=== PATIENT | female | born 1950 | race Caucasian/White ===

== ENCOUNTER 2017-03-27 10:22 | Emergency (ER) | payer OTHER ==
[2017-03-27 10:29] VITALS: BP 101/68; BMI 22.4
--- NOTE | 2017-03-27 10:53 | DR.GENAD ---
HPI - PCP Primary Care Physician: devorah melton - HPI Comment HPI Comment: INCREASING LOWER AND UPPER BACK PAIN. HISTORY OF BACK INJURY PREVIOUSLY. - Complaint/Symptoms Chief Complaint Doctors Comments: INJURY UPPER AND LOWER BACK 5 DAYS AGO. Chief Complaint:: pt hurt back in the garden tuesday afternoon and it has got worse since then - Nurses notes reviewed Nurses Notes Review: Yes - Source History Provided: Patient - Mode of Arrival Mode of Arrival: Ambulatory - Timing Onset of Chief Complaint: 03/22/17 Came on: Suddenly - Duration Duration: Constant Duration: Days - Severity Severity: Moderate PMH - PMH Past Medical History: Yes Past Medical History: Anxiety, Dyslipidemia, Migraines, Hypertension Past Surgical History: Yes Surgical History: Angioplasty/Stents, Cholecystectomy, Hysterectomy, Ortho Surgery - Family History History of Family Medical Conditions: Yes Family Medical History: Cancer, Heart Failure, Hypertension - Social History Does patient currently use any type of tobacco product: No Have you used tobacco products in the last 12 months: No Type of Tobacco Use: None Does any household member use tobacco: No Alcohol Use: None Do you use any recreational Drugs:: No Lives With: Spouse Lives Where: Home - infectious screening In the last 2 months have you had wt loss of >10#?: NO Have you had fever, night sweats or hemotysis?: No Have you traveled outside the country in the last 6 months?: No Isolation: Standard ROS - Review of Systems Constitutional: No Symptoms Reported. negative: Chills, Fever Eyes: No Symptoms Reported. negative: Eye Pain, Discharge ENTM: No Symptoms Reported. negative: Ear Pain, Nose Discharge, Nose Congestion , Throat Pain Respiratoy: No Symptoms Reported. negative: Productive Cough, Non-Productive Cough, Short of Breath, Wheezing, Hemoptysis Cardiovascular: Chest Pain (BACK OF CHEST HURTING.) Gastrointestinal/Abdominal: No Symptoms Reported. negative: Abdominal Pain, Constipation, Nausea Genitourinary: No Symptoms Reported PE - Vital Signs Vitals: Temperature 97.4 F Pulse Rate 69 Respiratory Rate 18 Blood Pressure [Left Arm] 125/82 Blood Pressure 101/68 O2 Sat by Pulse Oximetry 99 - Discharge Plan Condition: Stable Prescriptions: Cyclobenzaprine HCl [FLEXERIL 10 MG *] 10 mg PO TID #20 tab Oxycodone/Acet 5 mg/325 mg [PERCOCET 5/325 MG *] 1 tab PO Q6H PRN #15 tab PRN Reason: Severe Pain - Follow ups/Referrals Follow ups/Referrals: FRANCIS MELTON [Primary Care Provider] - 3 days - Instructions Instructions: Thoracic Strain, [id number], Lumbosacral Strain Additional Instructions: RETURN TO ED IF WORSE.
[2017-03-27] MEDS ORDERED: NORFLEX INJ IM ONE (10:55)
[2017-03-27] MEDS ORDERED: TORADOL 60 MG VIAL IM ONE (10:55)
[2017-03-27] MEDS ORDERED: NORFLEX INJ ONE (10:57)
[2017-03-27] MEDS ORDERED: TORADOL 60 MG VIAL ONE (10:57)
--- NOTE | 2017-03-27 12:46 | RAD ---
HISTORY: Mid back pain. Study: AP and lateral views of the thoracic spine including swimmer's view. Comparison: September 02, 2014. Findings: Normal alignment of the thoracic spine is maintained. No destructive bony lesion is evident. There i s moderate spondylosis of the mid thoracic spine. Vertebral body and disk space heights are maintain ed. No evidence for acute fracture can be identified. IMPRESSION: Moderate spondylosis of the mid thoracic spine without acute or destructive bony abnormality evident . Reported By:
--- NOTE | 2017-03-27 12:49 | RAD ---
HISTORY: Low back pain. Study: Five view lumbar spine series. Comparison: September 02, 2014. Findings: There is mild dextroscoliosis of the lumbar spine similar to the comparison study. There is narrowin g of the L5-S1 intervertebral disc space without significant endplate sclerosis. Facet joint arthrop athy at L5-S1 is noted as well. Otherwise, vertebral body and disk space heights are maintained. No evidence for acute fracture can be identified. Cholecystectomy clips project over the right upper q uadrant of the abdomen. There is a small nonspecific metallic density projecting over the left pelvi s. There are bilateral pelvic phleboliths. IMPRESSION: 1. Dextroscoliosis of the lumbar spine with degenerative disc disease and facet joint arthropathy at L5-S1 similar to the comparison study. 2. No acute or destructive bony abnormality is evident. 3. Small nonspecific metallic density projecting over the left pelvis. Clinical correlation is reque sted. Reported By:
[2017-03-27] MEDS ORDERED: DECADRON INJ IM ONE (12:56)
[2017-03-27] MEDS ORDERED: DECADRON INJ ONE (12:59)
== END 2017-03-27 13:13 | disposition home or self-care (01) ==
LOC: ER 10:33
DX: S23.3XXA Sprain of ligaments of thoracic spine, initial encounter (principal); S39.012A Strain of muscle, fascia and tendon of lower back, initial encounter; Y33.XXXA Other specified events, undetermined intent, initial encounter; Y92.89 Other specified places as the place of occurrence of the external cause
CPT/HCPCS: 72072; 72110; 93005; 93010; 96372; 99282; 99283; J1100; J1885; J2360

== ENCOUNTER → 2017-09-01 | Outpatient (CLI) | payer OTHER ==
--- NOTE | 2017-09-02 09:19 | MG ---
HISTORY: SCREENING Comparison: 10/28/2015 FINDINGS: Bilateral CC and MLO projections of the right and left breast were obtained. Scattered fibroglandula r tissue is seen to be present. Developing asymmetry in the left breast at approximately 12 o'clock, mid depth. No skin thickening or nipple retraction is appreciated. No pathological lymphadenopath y can be identified. IMPRESSION: Possible developing asymmetry in the left breast at approximately 12 o'clock. ACR CATEGORY 0 - ASSESSMENT INCOMPLETE; ADDITIONAL IMAGING IS NEEDED Recommendation: Return for spot compression and possibly ultrasound of the left breast at 12 o'clock. Diagnostic CAD was utilized and reviewed. * 0 (ZERO) - ASSESSMENT INCOMPLETE; ADDITIONAL IMAGING IS NEEDED. * 1/1 (ONE) - NEGATIVE. * 2/II (TWO) - BENIGN FINDINGS. * 3/III (THREE) - PROBABLY BENIGN FINDING; SHORT INTERVAL FOLLOW-UP SUGGESTED. * 4/IV (FOUR) - SUSPICIOUS ABNORMALITY; BIOPSY SHOULD BE CONSIDERED. * 5/V - HIGHLY SUSPICIOUS OF MALIGNANCY; BIOPSY SHOULD BE PERFORMED. A NEGATIVE X-RAY REPORT SHOULD NOT DELAY BIOPSY IF A DOMINANT OR CLINICALLY SUSPICIOUS MASS IS PRESENT; 4 TO 8 PERCENT OF CANCERS ARE NOT IDENTIFIED BY X-RAY. A NEGA TIVE REPORT MAY REINFORCE THE CLINICAL IMPRESSION. ADENOSIS AND DENSE BREASTS MAY OBSCURE AN UNDERLY ING NEOPLASM. Reported By:
== END ==
LOC: RAD 09:51
PROVIDERS: ATTEND Nurse Practitioner Family
DX: Z12.31 Encounter for screening mammogram for malignant neoplasm of breast (principal)
CPT/HCPCS: 77067

== ENCOUNTER → 2017-09-13 | Outpatient (CLI) | payer OTHER ==
--- NOTE | 2017-09-13 14:49 | MG ---
HISTORY: Abnormal screening mammography with left breast developing asymmetry Left breast digital diagnostic mammography with CAD. Comparison: Multiple priors dating back to August 26, 2010 FINDINGS: Spot magnification and mL views of the left breast were obtained. Heterogeneously dense fibroglandul ar tissue is seen to be present with the previously described asymmetry dispersing with intervening f oci of lucency and assuming a similar appearance as compared to the more remote priors most compatibl e with benign fibroglandular parenchyma. No suspicious architectural distortion, mass or clustered m icrocalcifications can be observed to suggest malignancy. No skin thickening or nipple retraction is appreciated. No pathological lymphadenopathy can be identified. IMPRESSION: NO RADIOGRAPHIC EVIDENCE OF MALIGNANCY. ACR CATEGORY I - NEGATIVE EXAM. FOLLOW-UP EXAM 1 YEAR. Diagnostic CAD was utilized and reviewed. * 0 (ZERO) - ASSESSMENT INCOMPLETE; ADDITIONAL IMAGING IS NEEDED. * 1/1 (ONE) - NEGATIVE. * 2/II (TWO) - BENIGN FINDINGS. * 3/III (THREE) - PROBABLY BENIGN FINDING; SHORT INTERVAL FOLLOW-UP SUGGESTED. * 4/IV (FOUR) - SUSPICIOUS ABNORMALITY; BIOPSY SHOULD BE CONSIDERED. * 5/V - HIGHLY SUSPICIOUS OF MALIGNANCY; BIOPSY SHOULD BE PERFORMED. A NEGATIVE X-RAY REPORT SHOULD NOT DELAY BIOPSY IF A DOMINANT OR CLINICALLY SUSPICIOUS MASS IS PRESENT; 4 TO 8 PERCENT OF CANCERS ARE NOT IDENTIFIED BY X-RAY. A NEGA TIVE REPORT MAY REINFORCE THE CLINICAL IMPRESSION. ADENOSIS AND DENSE BREASTS MAY OBSCURE AN UNDERLY ING NEOPLASM. Reported By:
== END ==
LOC: RAD 13:20
PROVIDERS: ATTEND Nurse Practitioner Family
DX: R92.8 Other abnormal and inconclusive findings on diagnostic imaging of breast (principal)
CPT/HCPCS: 77065

== ENCOUNTER → 2017-12-12 | Outpatient (CLI) | payer OTHER ==
--- NOTE | 2017-12-12 19:06 | RAD ---
Examination: KUB History: Abdominal pain Findings: Nonobstructive intestinal gas pattern. No ascites, mass formation or pathologic calcificati on identified. Surgical clips right upper abdomen. No visceral enlargement. Impression: No acute abdominal process demonstrated. Reported By:
== END ==
LOC: RAD 16:46
PROVIDERS: ATTEND Nurse Practitioner Family
DX: R10.84 Generalized abdominal pain (principal); K59.09 Other constipation
CPT/HCPCS: 74018

== ENCOUNTER → 2017-12-16 | Outpatient (CLI) | payer OTHER ==
[~2017-12-16] MED LIST: NS 100 ML IV 100 ML IV ONE
[2017-12-16 10:32] LABS: ALANINE AMINOTRANSFERASE 18 Units/L (12-78); ALBUMIN 3.1 g/dL (3.4-5.0); ALKALINE PHOSPHATASE 121 Units/L (46-116); ASPARTATE AMINO TRANSFERASE 15 Units/L (15-37); BLOOD UREA NITROGEN 22 mg/dL (7-18); CALCIUM 8.8 mg/dL (8.5-10.1); CARBON DIOXIDE 32.4 mmol/L (21-32); CHLORIDE 103 mmol/L (98-107); COR CA(FOR HYPOALB) 9.5 mg/dL (8.5-10.1); CREATININE 0.97 mg/dL (0.55-1.02); SODIUM 140 mmol/L (136-145); TOTAL PROTEIN 6.6 g/dL (6.4-8.2); eGFR BLACK RACES > 60 (>60); eGFR NON BLACK RACES > 60 (>60)
--- NOTE | 2017-12-16 13:49 | CT ---
HISTORY: Abdominal pain, nausea, and constipation. Study: CT abdomen and pelvis with contrast Comparison: CT abdomen/pelvis dated June 06, 2016. Technique: Multiple axial images of the abdomen and pelvis were obtained from the lung bases to the pubic symphy sis after the administration of IV contrast. Dose reduction techniques including Automated Exposure Control (AEC) and adjustment of mA and kV were utilized. Findings: The visualized portions of the lung bases are unremarkable. Multiple hepatic cysts are again seen. O therwise, the liver, spleen, pancreas, kidneys, and adrenal glands are unremarkable in their CT appea isamar. The gallbladder is surgically absent. No significant mesenteric lymphadenopathy or stranding can be observed. No free fluid or free air is seen within the abdomen. The large and small bowel ar e unremarkable. The appendix is not well seen. The uterus and ovaries are surgically absent. The blad ishmael is collapsed and not well evaluated. The osseous structures are intact. No aggressive osseous les ions. IMPRESSION: No CT evidence of acute abdominal/pelvic pathology. Reported By:
== END ==
LOC: RAD 09:54
PROVIDERS: ATTEND Nurse Practitioner Family
DX: R10.84 Generalized abdominal pain (principal); K59.09 Other constipation; R53.83 Other fatigue
CPT/HCPCS: 36415; 74177; 80053; A4222

== ENCOUNTER 2018-02-27 14:26 | Emergency (ER) | payer OTHER ==
[2018-02-27 14:32] VITALS: BMI 26.6
--- NOTE | 2018-02-27 15:06 | DR.EXTPAIN ---
HPI - Time seen Time seen: 15:30 - PCP Primary Care Physician: devorah melton - HPI Comment HPI Comment: HISTORY BELOW. - Complaint/Symptoms Chief Complaint Doctor Comments: RIGHT SUBCONJUCTIVA HEMORRHAGE AND SEVERE HEADACHE SINCE LAST NIGHT. SAME HAPPEN TO LT EYE RECENTLY. SAW EYE DOCTOR THEN. BP HIGH IN ED. NO TRAUMA. Chief Complaint:: pt stated her bp was high last night and a blood vessel busted in her right eye and she has a bad headache. Self Treatment fo Chief Complaint: pt stated she took her bp meds - Nurses notes reviewed Nurses Notes Review: Yes - Source History Provided: Patient - Mode of arrival Mode of Arrival: Ambulatory - Timing Onset of Chief Complaint: 02/26/18 - Context History of: Arthritis - Associated signs and symptoms Associated Signs and Symptoms: Pain (HEADACHE), Nausea, Shortness of Breath, Other (RIGHT SUBCONJUNCTIVA HEMORRHAGE.) PMH - PMH Past Medical History: Yes Past Medical History: Anxiety, Dyslipidemia, Migraines, Hypertension Past Surgical History: Yes Surgical History: Angioplasty/Stents, Cholecystectomy, Hysterectomy, Ortho Surgery - Family History History of Family Medical Conditions: Yes Family Medical History: Cancer, Heart Failure, Hypertension - Social History Does patient currently use any type of tobacco product: No Have you used tobacco products in the last 12 months: No Type of Tobacco Use: None Does any household member use tobacco: No Alcohol Use: None Do you use any recreational Drugs:: No Lives With: Family Lives Where: Home - infectious screening In the last 2 months have you had wt loss of >10#?: NO Have you had fever, night sweats or hemotysis?: No Have you traveled outside the country in the last 6 months?: No Isolation: Standard ROS - Review of Systems Constitutional: No Symptoms Reported. negative: Chills, Fever Eyes: negative: Eye Pain, Blurred Vision, Discharge ENTM: Nose Congestion. negative: Ear Pain, Nose Discharge, Throat Pain Respiratoy: Non-Productive Cough, Short of Breath. negative: Wheezing, Hemoptysis Cardiovascular: No Symptoms Reported Gastrointestinal/Abdominal: Nausea, Vomiting. negative: Abdominal Pain Genitourinary: No Symptoms Reported Neurological: Headache, Weakness, Dizziness Musculoskeletal: Muscle Pain Integumentary: No Symptoms Reported Hematologic/Lymphatic: No Symptoms Reported Endocrine: No Symptoms Reported All Other Systems: Reviewed and Negative PE - Vital Signs Vitals: Temperature 98.3 F Pulse Rate [Left Brachial] 59 Pulse Rate 64 Respiratory Rate 16 Blood Pressure [Left Arm] 159/72 Blood Pressure 136/81 O2 Sat by Pulse Oximetry 99 - General Limitations: No Limitations General Appearance: Alert - Head Head Exam: Normal Inspection - Eyes Eye exam: EOMI, Other (RT SUBCONJUNCTIVA HEMORRHAGE) - ENT ENT Exam: Normal External Ear Exam - Neck Neck Exam: Normal Inspection, Trachea Midline - Chest Chest Inspection: Normal Inspection - Respiratory Respiratory Exam: Normal Lung Sounds Bilat Respiratory Exam: Bilateral Rhonchi, Lower Rhonchi - Cardiovascular Cardiovascular Exam: Regular Rate, Normal Rhythm, Normal Heart Sounds - Abdominal Exam Abdominal Exam: Normal Bowel Sounds, Soft. negative: Tenderness - Extremities Extremities Exam: Normal Inspection - Lower Extremities Neurovascular/Tendon Exam: Normal Capillary Refill Gait Exam: Observed and Normal - Back Back Exam: Normal Inspection - Neurological Neurological Exam: Alert, Oriented X3 - Psychiatric Psychiatric Exam: Anxious - Skin Skin Exam: Warm, Erythema MDM - Differential Diagnosis Differential Diagnosis: Other (SUBCONJUNCTIVA HEMORRHAGE, HEADACHE) Course - Treatment Treatment: SEE ORDERS. BP IMPROVED WITH MEDS GIVEN IN ED. - Reevaluation 1st: Improved - Education/Counseling Education/Counseling: Patient, Education Educated On: Diagnosis, Needs for Follow Up ROR - XRAY XRAY Interpreted by: Radiologist XRAY Findings: REPORT DISCUSS WITH PATIENT. - Diagnosis Discharge Problem: Headache Qualifiers: Headache type: unspecified Headache chronicity pattern: acute headache Intractability: intractable Qualified Code(s): R51 - Headache Subconjunctival hematoma Qualifiers: Laterality: right Qualified Code(s): H11.31 - Conjunctival hemorrhage, right eye HTN (hypertension) Qualifiers: Hypertension type: essential hypertension Qualified Code(s): I10 - Essential ( primary) hypertension - Discharge Plan Disposition: HOME, SELF-CARE Condition: Stable Prescriptions: [id number] [Fioricet Tab] 1 tab PO Q8H PRN #15 tab PRN Reason: Migraine Headache Clonidine HCl [CATAPRES 0.1 MG TAB *] 0.1 mg PO Q24H PRN #10 tab PRN Reason: - Follow ups/Referrals Follow ups/Referrals: FRANCIS MELTON [Primary Care Provider] - 1 day BARBARA STARR [CONSULTING PHYSICIAN] - 1 day - Instructions Instructions: Migraine Headache, [id number], Hypertension, [id number], Subconjunctival Hemorrhage Additional Instructions: RETUEN TO ED IF WORSE. DISCUSS WITH YOUR DOCTOR IN AM BEFORE TAKEN PLAVIX, ASPRIN AND MELOXICAM.
[2018-02-27] MEDS ORDERED: ZOFRAN INJ 4 MG VIAL IM ONE (15:36)
[2018-02-27] MEDS ORDERED: DEMEROL INJ IM ONE (15:36)
[2018-02-27] MEDS ORDERED: DEMEROL INJ ONE (15:40)
[2018-02-27] MEDS ORDERED: ZOFRAN INJ 4 MG VIAL ONE (15:40)
--- NOTE | 2018-02-27 16:06 | CT ---
HISTORY: Headache and high blood pressure. Study: CT brain without contrast Comparison: CT head dated February 24, 2015. Technique: Multiple axial images of the brain were obtained from the skull base to the vertex without administra tion of IV contrast. Dose reduction techniques including Automated Exposure Control (AEC) and adjust ment of mA and kV were utilized. Findings: Age-related cortical atrophy and chronic small vessel ischemic changes. No acute intraparenchymal hem orrhage or mass can be identified. No extra-axial fluid collections are seen. No alteration in the attenuation of the brain parenchyma can be identified to suggest acute or subacute ischemic change. The ventricular system is symmetric and nondilated. The extracranial structures are grossly unremark able. IMPRESSION: No acute intracranial pathology. Reported By:
[2018-02-27 16:16] VITALS: BP 159/72
[2018-02-27] MEDS ORDERED: CATAPRES TAB 0.1 MG PO ONE (16:41)
[2018-02-27] MEDS ORDERED: CATAPRES TAB 0.1 MG ONE (16:41)
[2018-02-27] MEDS ORDERED: FIORICET TAB PO ONE ×2 (17:37→17:41)
== END 2018-02-27 18:00 | disposition home or self-care (01) ==
LOC: ER 14:37
DX: R51 Headache (principal); H11.31 Conjunctival hemorrhage, right eye; I10 Essential (primary) hypertension
CPT/HCPCS: 70450; 96372; 99282; 99283; J2175; J2405